=== PATIENT | male | born 1970 | race Caucasian/White ===

== ENCOUNTER 2023-08-03 12:04 | Outpatient (CLI) | payer BC, SELFPAY | END 2023-08-03 12:05 | disposition home or self-care (01) | PROVIDERS: PCP Family Medicine; Visit Provider Family Medicine | DX: E11.9 Type 2 diabetes mellitus without complications (principal); I10 Essential (primary) hypertension; Z12.5 Encounter for screening for malignant neoplasm of prostate; Z79.899 Other long term (current) drug therapy | CPT/HCPCS: 80061; 80076; 82043; 82570; G0103 ==

== ENCOUNTER 2024-08-22 13:06 | Outpatient (CLI) | payer BC, SELFPAY | END 2024-08-22 13:07 | disposition home or self-care (01) | PROVIDERS: PCP Family Medicine; Visit Provider Family Medicine | DX: I10 Essential (primary) hypertension (principal); E11.9 Type 2 diabetes mellitus without complications; E66.9 Obesity, unspecified; Z12.5 Encounter for screening for malignant neoplasm of prostate | CPT/HCPCS: 80053; 80061; 82043; 82570; G0103 ==